=== PATIENT | female | born 1935 | race Caucasian/White ===

== ENCOUNTER → 2018-04-21 | Emergency (ER) | payer OTHER ==
[~2018-04-21] VITALS: Ht 162.6 cm; Wt 62.6 kg
[~2018-04-21] MED LIST: AMLODIPINE BESYL5 MG PO; AVALIDE 300-12.1 TAB; ECOTRIN81 MG; FENOFIBRATE160 MG; FORTAMET1000 MG PO; GLUCOPHAGE XR500 MG; GLUCOPHAGE XR750 MG; LABETALOL HCL200 MG; LIPITOR20 MG; LIPITOR20 MG PO; TOPROL XL50 M1 PO; ZANTAC150 M3
== END | disposition home or self-care (01) ==
LOC: ER 12:46
DX: E11.65 Type 2 diabetes mellitus with hyperglycemia (principal)